=== PATIENT | male | born 2000 | race Caucasian/White ===

== ENCOUNTER 2023-11-07 14:21 | Emergency (ER) | payer OTHER, SELFPAY ==
[2023-11-07 14:23] VITALS: BP 128/84
[2023-11-07 16:07] VITALS: BMI 21.6
[2023-11-07 16:09] VITALS: BP 137/76
--- NOTE | 2023-11-07 16:20 | EDRN ---
Eric Daniel [employer] TECHNICIAN in to see pt at this time.
--- NOTE | 2023-11-07 16:44 | ED.MUSCINJ ---
HPI-Injury
General
Chief Complaint: Musculo-Skeletal Complaint
Exam Limitations: none
Time Seen by Provider: 11/07/23 16:16
Nursing documentation reviewed up to this point in time: agreed with
History of Present Illness-Injury
Is this injury a work related problem?: No
Is pt an associate of [facility]/[place]?: No
Initial Injury comments:
Patient to ED with complaint of left wrist pain. States he fell off skateboard on wednesday. No other complaints.
Past History
Past History
ED Past Medical History: Asthma
ED Past Surgical History: Appendectomy
Social History
Drug: Marijuana and Other
Living: with family
Review of Systems
Review of Systems
Allergies reviewed?: Yes
All Other Systems: ROS reviewed and negative except as documented in HPI and ROS
Constitutional: Reports no symptoms
Musculoskeletal: Reports joint pain (Pain to left wrist)
Skin: Reports no symptoms
Neurological: Reports no symptoms
Psychiatric: Reports no symptoms
Musculoskeletal Injury Exam
Musculoskeletal Injury Exam
Left Wrist:
Pain with Movement?: Moderate
Tender to palpation?: Moderate
Soft tissue swelling?: None
Joint effusion?: None
Contusion?: None
Hematoma-local bleeding into tissue?: None
Strain- Sprain- Tear (Connective tissue injury)?: Moderate
Crepitus with movement?: No
Joint instability?: No
Malalignment/deformity?: No
Range of motion: Limited
Distal skin color and temperature: normal-warm & good color
Capillary Refill: normal
Normal distal neurovascular exam?: Yes
Peripheral Pulses: radial (left): 3+
Phy Exam
General Physical Exam
General Presentation: well appearing and no apparent distress
General age: appears stated age
General Skin: warm and dry
General Habitus: normal
General Mental: alert
Musculoskeletal Exam
Musculoskeletal Exam: full ROM and neuro vasc intact
Skin Exam
Skin Exam: normal color, warm/dry and no rash
Psychiatric Exam
Psychiatric Exam: normal mood/affect
Injury Course
Orders/Labs/Results
Orders:
Orders
11/07/23 14:25
CR Wrist - Left Min 3 Views Urgent
Comment:
Reason For Exam: fall
*Radiology
Radiology exam reviewed: radiology read reviewed
*Pulse Oximetry
Patient hypoxic: no
*Critical Care Note
Total Time (30-74mins, 75-104mins- exclusive of procedures): Not Applicable
ED Attending Note
-
Portions of this chart may have been created with voice recognition software.� Occasional wrong word or��sound alike� substitutions may have occurred due to the inherent limitations of voice recognition software.
Discharge Plan
Departure
Patient Disposition: Home (Routine Discharge)
Date of Disposition: 11/07/23
Time of Disposition: 16:42
Patient with high blood pressure during this ER visit?: No
Condition: Good
Covid-19: Not Applicable
Discharge Problem:
Sprain of wrist
Instructions: Ibuprofen, Using Cold for Pain, Wrist Sprain ED
Prescriptions:
No Action
levalbuterol HCl 0.63 MG/3 ML solution for nebulization
0.63 mg inhalation R Q4HPRN PRN (Reason: asthma)
cetirizine 10 MG tablet
10 mg PO DAILY Qty: 30 0RF
acetaminophen-codeine 10 ML solution
10 ml PO Q6HPRN PRN (Reason: pain) Qty: 100 0RF
Rx Instructions:
240 mg and 24 mg/10 ml
Referrals:
Demario Abrams MD [Active] - (Follow up if your symptoms do not improve over the next week.)
Antony Gregorio MD [Family Provider] -
Interventions
Interventions:
*Risk Screen - Suicide Last Done: 11/07/23 16:06
*General Assessment Last Done: 11/07/23 16:06
*Neglect/Abuse Screening Last Done: 11/07/23 16:06
ED- Fall Risk Assessment Last Done: 11/07/23 16:06
*ED COVID-19 Vaccine History Last Done: 11/07/23 16:06
ED-Musculoskeletal Assessment Last Done: 11/07/23 16:06
Discharge Date and Time
Print Language: KOREAN
== END 2023-11-07 16:49 | disposition home or self-care (01) ==
LOC: EMR 14:21
PROVIDERS: EMERGENCY PHYSICIAN Emergency Medicine; FAMILY PHYSICIAN Family Medicine
DX: S63.92XA Sprain of unspecified part of left wrist and hand, initial encounter (principal); V00.131A Fall from skateboard, initial encounter
CPT/HCPCS: 99283; 29125; 73110